=== PATIENT | male | born 1975 | race Caucasian/White ===

== ENCOUNTER 2018-02-02 09:00 | Outpatient (RCR) | payer OTHER, SELFPAY ==
--- NOTE | 2018-01-26 10:43 | HP.PTEVAL_ITS ---
Patient's Visit Information TIMOTEO SANDOVAL is a 42 year old M referred to Physical Therapy by Sebastián Taylor with a diagnosis of back pain and chest wall pain.. Date of Evaluation: 01/26/18 Physical Therapist: Rochelle Calvillo - Visit Plan Frequency: 1-2x /Week Duration: 6 Weeks Plan: 1-2X/ week for 4-6 weeks for postural correction, centralization of symptoms, extension principle ROM, core stability and scapular stability, manual therapy, with HEP and modalities PRN - Subjective Subjective: Pt has been having a lot of chest pain. Dr told him it was costochondrtitis. 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 As time has progressed it seems that it is getting worse. 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 He has a dull constant pain and does not notice is so much with movement but more afterwards. Pain is on the L side. 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 It is the same pain. The tumor was removed in 2012 and then pain never went away. It is on the L side just at bottom of chest wall and rib cage. Sometimes it will radiate into L shoulder and arm. Hard to put weight through it. He has not had any PT etc before. He has back and forth with MD's with gastroc 's etc.....he does have a hiatal hernia as well. Twisting makes it hurt worse. 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 Pt then went to pain management and Dr Taylor gave him maloxicam and has helped a little with the chest but nothing for his back. Only been on it for 3 weeks. Pt is not sleeping well and is sleeping on the loveseat and sleeps 2-3 hours and then has to move due to pain. Dr Taylor said is looking into coverage for injections into the ribs. - Pain L chest wall Pain Intensity (Out of 10): 7 Pain Intensity Range: 10 back pain Pain Intensity (Out of 10): 6 Pain Intensity Range: 10 - Objective Gait: normal gait pattern. Trunk AROM: flex 75%, ext 50%, SB B 50%, Rot 50%. Prone press up: only about 25% normal ROM. LE MMT: hip flex B 4+/5, knee ext B 4+/5, Knee flex B 4+/5, B hip abd 4+/5. Hip ext B 4-/5, able to walk on heels and toes. No tenderness to palpation over the L sided ribs. Thoracic L rotation mobs at approx t-10-L1 pt could feel the pain radiate to the L ribs. After doing 3 sets of rotation mobs at about 2 min each pt reported that he felt a tiny bit better. Instructed pt in prober sitting posture with a towel roll and her reported that it felt better to sit like that. - Goals Goal 1:: I HEP Goal Time Frame: 4-6 Weeks - Rehabilitation Potential Rehabilitation Potential: Good - Anticipated Interventions Patient/Client Instruction: Educate patient on: Condition, Plan of Care For the Purpose of:: To decrease pain, To increase ROM, To improve nutrient delivery to tissue, To improve muscle performance and motor function, To improve ability to perform ADL's, To increase tolerance to activity/condition/ position, To improve health of tissue, To decrease soft tissue restriction, To increase flexibility/ROM Therapeutic Exercise to Include: Strength training, Body mechanics, Postural training, Flexibilty training, Passive ROM, Active ROM, Dynamic Lumbar Stabilization, Quynh Exercises, Scapular Strength/Stabilization For the Purpose of:: To decrease pain, To decrease swelling/inflammation, To increase ROM, To improve nutrient delivery to tissue, To improve muscle performance and motor function, To improve ability to perform ADL's, To increase tolerance to activity/condition/position, To improve health of tissue, To decrease soft tissue restriction, To increase flexibility/ROM Manual Therapy Techniques to Include: Mobilization, Soft tissue mobilization For the Purpose of:: To decrease pain, To increase ROM, To improve nutrient delivery to tissue, To improve muscle performance and motor function, To improve ability to perform ADL's, To increase tolerance to activity/condition/ position, To improve health of tissue, To decrease soft tissue restriction, To increase flexibility/ROM IF ES: Yes Cryotherapy (ice pack, ice massage): Yes Thermo therapy (hot pack): Yes Ultrasound (thermal/non thermal): Yes For the Purpose of:: To decrease pain, To decrease swelling/inflammation, To increase ROM, To improve nutrient delivery to tissue Thank you for the opportunity to evaluate your patient. For Medicare and Medicare HMO plans, please review the plan of care and approve it. It will need to be FAXED BACK to us at [phone] for Medicare purposes. Please let me know if there are questions or concerns regarding this plan of care. Physician Signature: Date:
--- NOTE | 2018-03-02 08:18 | HP.PTDCNRP_ITS ---
HP - Discharge Summary (1) - Patient Information TIMOTEO SANDOVAL was seen in my office for initial evaluation on 01/26/18. The following Plan of Care was established for this patient: Initial Frequency: 1-2x /Week Initial Duration: 6 Weeks - Anticipated Interventions Patient/Client Instruction: Educate patient on: Condition, Plan of Care For the Purpose of:: To decrease pain, To increase ROM, To improve nutrient delivery to tissue, To improve muscle performance and motor function, To improve ability to perform ADL's, To increase tolerance to activity/condition/ position, To improve health of tissue, To decrease soft tissue restriction, To increase flexibility/ROM Therapeutic Exercise to Include: Strength training, Body mechanics, Postural training, Flexibilty training, Passive ROM, Active ROM, Dynamic Lumbar Stabilization, Quynh Exercises, Scapular Strength/Stabilization For the Purpose of:: To decrease pain, To decrease swelling/inflammation, To increase ROM, To improve nutrient delivery to tissue, To improve muscle performance and motor function, To improve ability to perform ADL's, To increase tolerance to activity/condition/position, To improve health of tissue, To decrease soft tissue restriction, To increase flexibility/ROM Manual Therapy Techniques to Include: Mobilization, Soft tissue mobilization For the Purpose of:: To decrease pain, To increase ROM, To improve nutrient delivery to tissue, To improve muscle performance and motor function, To improve ability to perform ADL's, To increase tolerance to activity/condition/ position, To improve health of tissue, To decrease soft tissue restriction, To increase flexibility/ROM IF ES: Yes Cryotherapy (ice pack, ice massage): Yes Thermo therapy (hot pack): Yes Ultrasound (thermal/non thermal): Yes For the Purpose of:: To decrease pain, To decrease swelling/inflammation, To increase ROM, To improve nutrient delivery to tissue This patient was last seen in our office 02/02/18. Pertinent comments regarding their Physical therapy will appear below: DC PT for pt NS..... At this point I will be discontinuing this patient from physical therapy. I would be happy to see this patient again in the future if found appropriate by the physician. Thank you! Rochelle Calvillo
== END 2018-02-02 19:00 | disposition home or self-care (01) ==
LOC: PT 09:00
PROVIDERS: Family Provider Family Medicine; PCP Family Medicine; Visit Provider Anesthesiology Pain Medicine
DX: M54.9 Dorsalgia, unspecified (principal); R07.89 Other chest pain
CPT/HCPCS: 97110; 97140; 97161

== ENCOUNTER → 2018-03-19 09:21 | Outpatient (CLI) | payer OTHER, SELFPAY ==
--- NOTE | 2018-03-19 09:25 | RAD_ITS ---
STUDY: X-RAY - RIGHT KNEE REASON FOR EXAM: Male, 42 years old. Bilateral knee pain. TECHNIQUE: 4 view(s) of the knee. COMPARISON: None. FINDINGS: Normal visualized distal femur. Findings suggestive of old [place]-Schlatter disease. Normal proximal tibiofibular articulation. Normal medial femorotibial compartment. Normal lateral femorotibial compartment. Normal patellofemoral articulation. Tiny joint effusion. RAD/Knee 4 or More Views IMPRESSION: Tiny joint effusion. Findings suggestive of old [place]-Schlatter disease. Electronically Signed: Riley Aldridge MD at 15:36 EDT Tel [phone], Service support ,
--- NOTE | 2018-03-19 09:25 | RAD_ITS ---
STUDY: X-RAY - LEFT KNEE REASON FOR EXAM: Male, 42 years old. Chronic bilateral knee pain. TECHNIQUE: 4 view(s) of the knee. COMPARISON: None. FINDINGS: Normal visualized distal femur. Normal visualized proximal tibia and fibula. Normal proximal tibiofibular articulation. Normal medial femorotibial compartment. Normal lateral femorotibial compartment. Normal patellofemoral articulation. Focal calcification in the distal patellar tendon. Tiny joint effusion. RAD/Knee 4 or More Views IMPRESSION: Tiny joint effusion. Electronically Signed: Riley Aldridge MD at 15:36 EDT Tel [phone], Service support ,
== END ==
PROVIDERS: Family Provider Family Medicine; PCP Family Medicine; Visit Provider Anesthesiology Pain Medicine
DX: M25.562 Pain in left knee (principal); M25.561 Pain in right knee
CPT/HCPCS: 73564

== ENCOUNTER 2022-04-03 16:16 | Emergency (ER) | payer MEDICAID, SELFPAY ==
[2022-04-03 16:17] VITALS: BP 150/91; PULSE 83; RESP 15; TEMP 36.9; O2SAT 99; BMI 35.9
[2022-04-03 16:37] VITALS: RESP 18
--- NOTE | 2022-04-03 16:37 | EX.ED.VIS.PS ---
HPI HPI - Psych History of Present Illness Chief Complaint: Mental Health Informant: patient Onset/Context/Timing Onset: Today Narrative Narrative: Patient was in a verbal altercation with his immediate family, and 16 and 18-year-old daughters. The 3 of them were out at a graduation green party last night and did not get home till 4 AM. The patient was not with them. When they got home he was upset because none of them contacted him and he was concerned about their safety. Additionally, the 18-year-old brought a boy home with her, which is against the household rules. This morning, the patient went to apologize to his family for getting upset with them, and the continued the fight being upset with him, argument ensued. The rest of his family got in the car and they were going to leave, and in the heat of the moment, he said that if they left he was going to kill himself because he did not want them to leave. He regrets saying that, he has no intention of harming himself or others, states he has a good life and loves his family, but states that his parenting techniques are different than his 's and he has difficulty with his teenage daughters at times breaking his rules. His called the police. That the police brought him here. He is not intoxicated or under the influence of any substances. He actively follows with the [facility] and the psychiatrist there. He sees them every 6 months, the last visit was a month or 2 ago. He has been compliant with his medications that he is on for depression and anxiety. He denies any recent illness or injury. [facility] Medical History (Updated 04/03/22 @ 16:[address] You Robison MD) Depression with anxiety Allergy/AdvReac Type Severity Reaction Status Date / Time Penicillins [PCN] Allergy Rash Verified 04/03/22 16:17 Social History (Updated 04/03/22 @ 16:[address] You Robison MD) alcohol intake: never substance use type: does not use ROS ROS ED Constitutional Constitutional ED: Denies chills or fever(s) Eyes Eyes: Denies change in vision or diplopia ENT ENT ED: Denies rhinorrhea or sore throat Cardiovascular Cardiovascular: Denies chest pain or palpitations Respiratory/Chest Respiratory/Chest: Denies cough or dyspnea Gastrointestinal Gastrointestinal: Denies abdominal pain, diarrhea, nausea or vomiting Genitourinary Genitourinary ED: Denies dysuria or hematuria Musculoskeletal Musculoskeletal: Denies back pain or neck pain Integumentary Denies abscess or rash Neurologic Neurologic: Denies headache(s), paresthesias or weakness Psychiatric Psychiatric: Reports anxiety; Denies suicidal ideation or suicidal thoughts EXAM Physical Exam Const Vital Signs: 04/03/22 16:17 Temperature 98.4 F Temperature Source Temporal Pulse Rate 83 Respiratory Rate 15 Blood Pressure 150/91 H Blood Pressure Mean 110 Pulse Ox 99 Oxygen Delivery Method Room Air Positive well nourished and well developed General Appearance ED: well developed and NAD HEENT Reports moist mucous membranes normocephalic and atraumatic Eyes PERRL and EOMs intact bilaterally Neck full ROM and supple Resp normal respiratory effort and clear to auscultation bilaterally Cardio regular rate, regular rhythm and no murmurs GI non-tender and non-distended Auscultation: normoactive bowel sounds Palpation: soft Back/Spine no CVA tenderness General Back: other FROM Extremity normal to inspection General Extremety ED: Negative for edema, pulses abnormal or tenderness General Extremity: Negative for edema or pulses abnormal Neuro oriented x3, CN's II-XII intact bilaterally and no sensory deficits noted Sensorium / Orientation: awake and alert Motor Exam: strength 5/5 throughout Psych mental status grossly normal, thought process normal, cooperative, affect normal, speech normal, activity/motor behavior normal, denies hallucinations, denies homicidal ideation and denies suicidal ideation Skin no rashes or lesions noted and no wounds MDM MDM MDM Narrative Medical decision making narrative: This patient made a poor judgment call with regards to the statements that he said, he is not suicidal, he does not need to be placed for further emergent psychiatric evaluation. He is agreeable to follow-up with his counselor or psychiatrist after this weekend is over, soon as to have an appointment. I discussed with crisis to ensure this happens. Afterwards, he will be discharged in stable condition. Discharge Plan Triage Chief Complaint: Mental Health ED Provider: You Robison Dx/Rx/DC Orders Clinical Impression: Acute reaction to situational stress Instructions: Responding Better to Stress Primary Care Provider: Mindi Gifford Referrals: Counseling,Center [GROUP OF PHYSICIANS] - (call monday to make appt for this next week or next) Mindi Gifford DO [Primary Care Provider] - Disposition Disposition: Home, Self Care
== END 2022-04-03 16:59 | disposition home or self-care (01) ==
LOC: ED 16:42
PROVIDERS: Emergency Provider Emergency Medicine; PCP Family Medicine; Visit Provider Emergency Medicine
DX: F43.0 Acute stress reaction (principal); F41.9 Anxiety disorder, unspecified; F32.A Depression, unspecified; Z79.899 Other long term (current) drug therapy
CPT/HCPCS: 99282